=== PATIENT | male | born 1985 | race Caucasian/White ===

== ENCOUNTER 2020-08-26 12:43 | Emergency (ER) | payer OTHER, SELFPAY ==
[2020-08-26 13:10] VITALS: BP 133/78; PULSE 103; RESP 20; TEMP 36.5; O2SAT 95; BMI 36.2
--- NOTE | 2020-08-26 13:17 | ED.URI ---
HPI - URI/Sore Throat General Chief Complaint: Upper Respiratory Symptoms Stated Complaint: flu sx fever Time Seen by Provider: 08/26/20 12:53 History of Present Illness HPI Narrative: Patient complains of a cough body aches, feeling warm possible fever over the past 24 hours, no shortness of breath no sputum no nausea no vomiting no diarrhea he does not have any known COVID contact Related Data Previous Rx's Medication Instructions Recorded ibuprofen 600 mg tablet 600 mg PO TID PRN 90 Days #180 tab 08/02/20 Allergies Allergy/AdvReac Type Severity Reaction Status Date / Time Penicillins Allergy Mild ANAPHYLAXIS Unverified 07/05/20 16:59 aspirin [Aspirin] Allergy Unknown ANAPHYLAXIS Unverified 07/05/20 16:59 penicillin V Allergy Unknown swelling Verified 06/12/20 00:00 ASPIRIN Allergy Unknown Uncoded 09/30/18 00:00 From [facility] Allergy Unknown ANXIETY Uncoded 07/05/20 16:59 PENICILLIN Allergy Unknown Uncoded 09/30/18 00:00 Review of Systems Review of Systems: Review of systems is positive for cough body aches fatigue fever There is no dizziness no weakness no headache no shortness of breath no difficulty swallowing or breathing no nausea vomiting or diarrhea no abdominal pain, there is no runny nose or sore throat, no rash no dizziness no weakness Yes all other systems are reviewed and are negative PMFSH Past Medical History Source: nursing notes reviewed Medical History (Updated 08/26/20 @ 14:46 by ANA MARIA Killian) Bipolar 1 disorder GERD (gastroesophageal reflux disease) Social History Social History Advance Directives: No Advance Directives Information Provided: Yes Physical Exam Vital Signs: Vital Signs: Last Vital Signs Temp 97.7 F 08/26/20 13:10 Pulse 103 H 08/26/20 13:10 Resp 20 08/26/20 13:10 BP 133/78 08/26/20 13:10 Pulse Ox 95 08/26/20 13:10 Body Mass Index 36.2 Patient is A&O x3, no acute distress, comfortable appearing The head is normocephalic atraumatic The eyes are normal no redness or discharge The neck is supple The chest is clear to auscultation bilaterally with no adventitious sounds, no respiratory distress The heart no murmurs Abdomen is soft nontender Extremities no edema Neuro no focal deficit Course Course Course Narrative: Patient remains comfortable throughout visit Chest x-ray was done here and negative Discharge Plan Discharge Clinical Impression: Acute viral syndrome Patient Disposition: Home, Self-Care Additional Instructions: No pneumonia was seen on the chest x-ray COVID test results will be back in 2-3 days and we will call you Return to ER any time any worse condition or any concerns COVID testing can miss cases of COVID so if you are still coughing and feel feverish and ill you should not go to work, but if symptoms are improved and testing is negative you can return Prescriptions: No Action ibuprofen 600 mg tablet 600 mg PO TID PRN (Reason: fever or pain) 90 Days Qty: 180 RF: 0 Stand Alone Forms: Work/School Release Interventions: ED Discharge Assessment Last Done: 08/26/20 14:48 Discharge Date/Time: 08/26/20 14:48
--- NOTE | 2020-08-26 13:27 | XR_ITS ---
EXAMINATION: XR CHEST CLINICAL INFORMATION: Cough. COMPARISON: Chest done on 11/13/2018. TECHNIQUE: Frontal view of the chest was obtained. FINDINGS: No significant abnormality is noted involving the heart, lungs, mediastinum, bony thorax or soft tissues. XR/XR chest 1V IMPRESSION: Unremarkable examination.
== END 2020-08-26 14:48 | disposition home or self-care (01) ==
PROVIDERS: Physician Assistant Medical; Emergency Provider Emergency Medicine; PCP Internal Medicine
DX: B34.9 Viral infection, unspecified (principal); R50.9 Fever, unspecified; R05 Cough; Z20.828 Contact with and (suspected) exposure to other viral communicable diseases
CPT/HCPCS: 71045; 99283; U0003

== ENCOUNTER → 2021-01-03 10:58 | Outpatient (BNVA) | payer OTHER, SELFPAY | PROVIDERS: PCP Internal Medicine; Visit Provider Nurse Practitioner ==

== ENCOUNTER 2021-01-15 07:34 | Outpatient (REF) | payer OTHER, SELFPAY ==
--- NOTE | ~2021-01-15 | US_ITS ---
EXAMINATION: US ABDOMEN COMPLETE CLINICAL INFORMATION: Epigastric pain. COMPARISON: None TECHNIQUE: Real-time imaging of the abdominal viscera. FINDINGS: PANCREAS: Normal. ABDOMINAL AORTA: The proximal, mid, and distal segments are normal in caliber. INFERIOR VENA CAVA: Visualized portions are normal. LIVER: Liver echotexture is increased. The liver is normal in size. The liver contour is normal. There is a hypoechoic area adjacent to the gallbladder, a characteristic location of focal fatty sparing. No other focal hepatic lesion. There is no intrahepatic biliary duct dilatation seen. GALLBLADDER: Normal. The gallbladder is physiologically distended without evidence of stones, sludge, polyps, wall thickening or pericholecystic fluid. COMMON BILE DUCT: Normal in caliber measuring 0.50 cm in diameter. RIGHT KIDNEY: Normal. No hydronephrosis. No renal calculi or focal parenchymal lesions. The kidney measures 13.8 cm in maximum dimension. LEFT KIDNEY: Normal. No hydronephrosis. No renal calculi or focal parenchymal lesions. The kidney measures 13.4 cm in maximum dimension. SPLEEN: Normal. The spleen measures 13.0 cm in maximum dimension. FREE FLUID: None. US/US abdomen complete IMPRESSION: Echogenic liver probably representing fatty infiltration.
[2021-01-15 09:15] LABS: Amylase 107 U/L (28-100); Lipase 16 U/L (8-78)
== END 2021-01-15 07:35 | disposition home or self-care (01) ==
LOC: HO.US 07:34
PROVIDERS: Visit Provider Nurse Practitioner
DX: R10.13 Epigastric pain (principal); R10.10 Upper abdominal pain, unspecified; K29.71 Gastritis, unspecified, with bleeding; K21.9 Gastro-esophageal reflux disease without esophagitis; A04.8 Other specified bacterial intestinal infections
CPT/HCPCS: 36415; 76700; 82150; 83690

== ENCOUNTER 2021-01-17 08:09 | Outpatient (REF) | payer OTHER, SELFPAY ==
--- NOTE | ~2021-01-17 | FL_ITS ---
EXAMINATION: XR UPPER GI SERIES WITH SMALL BOWEL CLINICAL INFORMATION: Epigastric pain COMPARISON: 05/08/2014 TECHNIQUE: Fluoroscopic assessment of the upper GI tract was performed in various upright and supine/prone obliquities utilizing thin and thick high density barium contrast material and effervescent granules. Following this, additional contrast was administered orally, and interval abdominal radiographs were performed to assess for contrast progression through the small bowel. FINDINGS: The esophagus was normal in course, caliber, and contour. There was normal distensibility with no fixed segment of narrowing. No focal mucosal abnormality was identified. No significant esophageal dysmotility was observed. Contrast passed freely across the gastroesophageal junction into the stomach. No significant hiatal hernia. There was normal distensibility of the stomach with no focal abnormality identified. There was prompt gastric emptying into the duodenum which demonstrated a normal appearance. Mild gastroesophageal reflux was observed. There was normal transit time of contrast material through the small bowel, with contrast present in the colon by 2 hours 15 minutes. Small bowel loops are of normal caliber throughout the abdomen and pelvis. The jejunal and ileal fold patterns are normal, without evidence of abnormal thickening. No fixed regions of luminal narrowing are seen to suggest stricturing. The terminal ileum demonstrates a normal appearance. FLUOROSCOPY TIME: 1.6 minutes DOSE AREA PRODUCT: 38.363 Gy-cm2 (samson-centimeter squared) FL/FL upper GI small bowel IMPRESSION: 1. Mild gastroesophageal reflux noted. Otherwise unremarkable upper GI portion of the examination. 2. Normal small bowel series. Contrast enters the colon by 2 hours 15 minutes.
== END 2021-01-17 08:10 | disposition home or self-care (01) ==
LOC: HO.XRAY 08:09
PROVIDERS: Visit Provider Nurse Practitioner
DX: R10.13 Epigastric pain (principal); R13.10 Dysphagia, unspecified; K21.9 Gastro-esophageal reflux disease without esophagitis
CPT/HCPCS: 74240; 74248

== ENCOUNTER 2021-02-04 20:41 | Outpatient (REF) | payer OTHER, SELFPAY | END 2021-02-04 20:42 | disposition home or self-care (01) | LOC: HO.LNP 20:41 | PROVIDERS: Visit Provider Nurse Practitioner | DX: R10.13 Epigastric pain (principal); K21.9 Gastro-esophageal reflux disease without esophagitis; R13.10 Dysphagia, unspecified | CPT/HCPCS: 87338 ==

== ENCOUNTER → 2021-02-18 15:39 | Outpatient (BNVA) | payer OTHER, SELFPAY | PROVIDERS: PCP Internal Medicine; Visit Provider Nurse Practitioner ==

== ENCOUNTER → 2021-05-21 14:59 | Outpatient (BNVA) | payer OTHER, SELFPAY | PROVIDERS: PCP Internal Medicine; Visit Provider Nurse Practitioner ==

== ENCOUNTER → 2021-08-20 15:45 | Outpatient (BNVA) | payer OTHER, SELFPAY | PROVIDERS: PCP Internal Medicine; Visit Provider Nurse Practitioner ==

== ENCOUNTER → 2022-01-30 16:15 | Outpatient (BNVA) | payer OTHER, SELFPAY | PROVIDERS: PCP Internal Medicine; Visit Provider Nurse Practitioner | DX: Z13.89 Encounter for screening for other disorder (principal) ==